=== PATIENT | female | born 1960 | race Caucasian/White ===

== ENCOUNTER → 2024-01-13 11:40 | Outpatient (REF) | payer SELFPAY | LOC: RAD 11:40 | PROVIDERS: FAMILY PHYSICIAN Internal Medicine | DX: Z72.0 Tobacco use (principal); E78.5 Hyperlipidemia, unspecified | CPT/HCPCS: 75571 ==

== ENCOUNTER → 2024-03-09 12:57 | Outpatient (REF) | payer BC, SELFPAY | LOC: MRI 3T 12:57 | PROVIDERS: ATTENDING PHYSICIAN Internal Medicine | DX: R92.8 Other abnormal and inconclusive findings on diagnostic imaging of breast (principal); N63.0 Unspecified lump in unspecified breast | CPT/HCPCS: 77049; A9585 ==